=== PATIENT | female | born 1955 | race Caucasian/White ===

== ENCOUNTER 2017-12-18 11:13 | Inpatient (IN) | payer OTHER ==
[~2017-12-18] VITALS: Ht 167.6 cm; Wt 68.0 kg
[~2017-12-18 11:13] MED LIST: ABILIFY 2MG2 MG PO; ABILIFY 5MG5 MG PO; ATORVASTATIN CA20 MG PO; BUPROPION HCL100 M1 PO; BUPROPION SR100 M1 PO; LAMOTRIGINE150 MG PO; LEVOTHYROXINE0.1 M1 PO; LITHIUM CARBON600 MG PO; VITAMIN D1000 IU PO
--- NOTE | 2017-12-18 11:49 | ED PSYCHIATRIC COMPLAINT ---
See Addendum History of Present Illness General Chief Complaint: Psychiatric Related Complaint Stated Complaint: "I AM HERE TO GO TO [facility]" +SI Source: patient, family, old records Exam Limitations: no limitations Vital Signs & Intake/Output Vital Signs & Intake/Output Vital Signs Date Time Temp Pulse Resp B/P B/P Pulse O2 O2 Flow FiO2 Mean Ox Delivery Rate 12/18 1659 98.3 101 18 95/60 94 Room Air 12/18 1116 98.7 61 18 133/79 97 Room Air Allergies Coded Allergies: Penicillins (Intermediate, RASH 12/18/17) Reconcile Medications Aripiprazole (Abilify) 2 MG TABLET 1 TAB PO DAILY DEPRESSION/ANXIETY PRN Aripiprazole (Abilify) 5 MG TABLET 1 TAB PO DAILY DEPRESSION/ANXIETY Atorvastatin Calcium (Lipitor) 20 MG TABLET 20 MG PO 1700 HIGH CHOLESTEROL BUPROPION HCL (Bupropion HCl) 100 MG TABLET 1 TAB PO DAILY PSYCH (Reported) BUPROPION HCL (Bupropion HCl Sr) 100 MG TABLET.ER 1 TAB PO DAILY DEPRESSION Cholecalciferol (Vitamin D3) 1,000 UNIT TABLET 1,000 IU PO DAILY SUPPLEMENT Lamotrigine 150 MG TABLET 1 TAB PO DAILY DEPRESSION (Reported) Levothyroxine Sodium 0.1 MG TAB 1 TAB PO DAILY AC THYROID (Reported) Triage Note: PT STATES SHE IS BIPPOLR AND HAS BEEN OFF HER MEDS FOR 2 MONTHS. PT STATES SHE IS FEELING SUICIDAL DENIES HI. PT STATES SHE WAS SELF MEDICATING WITH ETOH, YESTERDAY BEING THE LAST TIME SHE TOOK A DRINK. Triage Nurses Notes Reviewed? yes Onset: Last week Duration: day(s):, constant, continues in ED Timing: recent history Severity: severe Associated Symptoms: anxiety, impaired concentration, insomnia, suicidal ideation LMP (ages 10-50): post menopausal : No Patient currently breastfeeds: No HPI: 2 months prior to admission patient moved [place] and has run out of her psychiatric medications without finding follow-up care. Over the last week she's had increasing depression sadness anxiety difficulty concentrating insomnia anorexia upset stomach nausea with thoughts of killing herself. She reports drinking alcohol to medicate herself. She denies fever chills vomiting diarrhea chest pain cough shortness of breath headache dysuria rash bleeding. (Reyna AVALOS,Elias) Past History Travel History Traveled to [place] past 21 day No Medical History Any Pertinent Medical History? see below for history Cardiovascular: hyperlipidemia Psychiatric: bipolar disease Endocrine: hypothyroidism History of MRSA: No History of VRE: No History of CDIFF: No Surgical History Surgical History: non-contributory Psychosocial History Who do you live with Spouse Services at Home Nursing What is your primary language Kittitian Tobacco Use: Never used ETOH Use: occasional use Illicit Drug Use: denies illicit drug use Family History Family History, If Any: MOTHER (Alzheimer's disease, heart disease). FATHER (depression, anxiety, melanoma). Relation not specified for: Anxiety disorder FH: Alzheimer's disease FH: depression FH: melanoma Hx Contributory? No (Elias Orellana MD) Review of Systems Review of Systems Constitutional: Reports: no symptoms. EENTM: Reports: no symptoms. Respiratory: Reports: no symptoms. Cardiovascular: Reports: no symptoms. GI: Reports: see HPI, nausea. Genitourinary: Reports: no symptoms. Musculoskeletal: Reports: no symptoms. Skin: Reports: no symptoms. Neurological/Psychological: Reports: see HPI, anxiety, depressed, emotional problems. Hematologic/Endocrine: Reports: no symptoms. Immunologic/Allergic: Reports: no symptoms. All Other Systems: Reviewed and Negative (Elias Orellana MD) Physical Exam Physical Exam General Appearance: well developed/nourished, mild distress Head: atraumatic, normal appearance Eyes: Bilateral: normal appearance, PERRL, EOMI. Ears, Nose, Throat: normal pharynx, normal ENT inspection, hearing grossly normal Neck: normal inspection, supple, full range of motion, no midline tenderness Respiratory: normal breath sounds, chest non-tender, no respiratory distress, quiet respiration, lungs clear Cardiovascular: regular rate/rhythm, normal peripheral pulses, norml femoral pulses equa Gastrointestinal: normal bowel sounds, soft, non-tender, no organomegaly Extremities: normal range of motion, no ligament instability Neurological/Psychiatric: no motor/sensory deficits, awake, agitated, alert, anxious, photo tech II-XII nml as tested, oriented x 3 Appearance/Memory/Insight: disheveled, impaired insight Behavoir/Eye Contact/Speech: cooperative, normal speech Thoughts/Hallucinations: no apparent hallucination Skin: intact, normal color, warm/dry SAD PERSONS SAD PERSONS Response Value Age <19 or >45 years? yes 1 Depression/Hopelessness? yes 2 Previous Attempts/Psych Care yes 1 Excessive Ethanol/Drug Use? yes 1 Rational Thinking Loss? yes 2 Single//? yes 1 Social Support? has support 0 Stated Future Intent? yes 2 Total 10 SAD PERSONS Done? yes (Reyna AVALOS,Elias) Progress Differential Diagnosis: drug intoxication, drug overdose, drug withdrawal, electrolyte abnormality, hypoglycemia Plan of Care: Orders Procedure Date/time Status Regular Diet 12/18 L Active Admit to inpatient psych 12/18 194 Active CIWA 12/18 194 Active Continuous Observation Monitor 12/18 1545 Active ED CRISIS PSYCH CONSULT 12/18 1503 Active Continuous Observation Monitor 12/18 1148 Active URINE DRUG SCREEN FOR ER ONLY 12/18 1147 Complete TSH REFLEX 12/18 1147 Complete ETHANOL 12/18 1147 Complete COMPREHENSIVE METABOLIC PANEL 12/18 1147 Complete CBC WITHOUT DIFFERENTIAL 12/18 1147 Complete Current Medications Sig/Phuc Start time Last Medication Dose Stop Time Status Admin Aripiprazole 5 MG ONCE ONE 12/19 1999 UNVr (Abilify) 12/18 2000 Lamotrigine 25 MG ONCE ONE 12/19 1999 UNVr (LaMICtal) 12/18 2000 Ondansetron HCl 4 MG Q6 PRN 12/18 1200 UNVr 12/18 (Zofran) 1234 Aripiprazole 5 MG DAILY 12/18 1146 UNVr 12/18 (Abilify) 1234 Laboratory Tests 12/18/17 1216: Urine Opiates Screen < 100, Methadone Screen < 40, Barbiturate Screen < 60, Ur Phencyclidine Scrn < 6.00, Amphetamines Screen < 100, U Benzodiazepines Scrn < 85, Urine Cocaine Screen < 50, Urine Cannabis Screen < 5.00 12/18/17 1207: Anion Gap 12, Estimated GFR > 60, BUN/Creatinine Ratio 21.7, Glucose 109 H, Calcium 9.5, Total Bilirubin 0.9, AST 96 H, ALT 116 H, Alkaline Phosphatase 60 , Total Protein 7.5, Albumin 4.3, Globulin 3.2, Albumin/Globulin Ratio 1.3, TSH &T3 &Free T4 Intrp 1.890, CBC w Diff NO MAN DIFF REQ, RBC 3.88 L, MCV 96.9, MCH 32.9 H, MCHC 34.0, RDW 13.8, MPV 7.4, Gran % 64.0, Lymphocytes % 26.2, Monocytes % 7.9, Eosinophils % 1.4, Basophils % 0.5, Absolute Granulocytes 3.1, Absolute Lymphocytes 1.3, Absolute Monocytes 0.4, Absolute Eosinophils 0.1, Absolute Basophils 0, Serum Alcohol < 10.0 Hand-Off Endorsed To: Thomas AVALOS,Aris Fishman Endorsed Time: 1899 Pending: consult (Elias Orellana MD) Departure Departure Disposition: STILL A PATIENT Condition: Stable Clinical Impression Primary Impression: Bipolar disorder current episode depressed Referrals: Marietta Rodriguez APRN (PCP/Family) Departure Forms: Customer Survey General Discharge Information (Elias Orellana MD) Psych Admission Note Psychiatric Admission: I have seen and evaluated ROBERTO CULP. I have also reviewed all the pertinent lab results and diagnostic results. ROBERTO CULP will be admitted to our inpatient Psychiatric unit for treatment and care. (Thomas AVALOS,Airs Fishman)
[2017-12-18 12:36] LABS: ABSOLUTE BASOPHIL COUNT 0 /CUMM (0.0-0.2); ABSOLUTE EOSINOPHIL COUNT 0.1 /CUMM (0.0-0.7); ABSOLUTE GRANULOCYTE CT 3.1 /CUMM (1.4-6.5); ABSOLUTE LYMPH COUNT 1.3 /CUMM (1.2-3.4); ABSOLUTE MONOCYTE COUNT 0.4 /CUMM (0.10-0.60); BASOPHIL % 0.5 % (0.0-2.0); EOSINOPHIL % 1.4 % (0-5); HEMATOCRIT 37.5 % (37-47); MEAN CORPUSCULAR HGB 32.9 PG (27.0-31.0); MEAN CORPUSCULAR VOLUME 96.9 FL (81.0-99.0); MEAN PLATELET VOLUME 7.4 FL (7.4-10.4); PLATELET COUNT 186 /CUMM (130-400); RBC DISTRIBUTION WIDTH 13.8 % (11.5-14.5); RED BLOOD CELL CT 3.88 /CUMM (4.20-5.40); WHITE BLOOD CELL COUNT 4.8 /CUMM (4.8-10.8)
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
[2017-12-18 21:58] VITALS: BP 116/70
[2017-12-18] MEDS ORDERED: LEVOTHYROXINE88 MCG PO (22:30)
[2017-12-18] MEDS ORDERED: ATORVASTATIN CA10 M1 PO (22:30)
[2017-12-18] MEDS ORDERED: MIRALAX17 G1 PO (22:31)
[2017-12-18 23:17] VITALS: BP 106/75
[2017-12-19] VITALS (8 sets, daily range): BP systolic 92–116; BP diastolic 57–60
--- NOTE | 2017-12-19 10:18 | CPS PROVIDER INIT ASMT PSYCH ---
Psychiatric Admission Consumer Affairs Director's Note Reviewed: Yes Patient Seen and Examined: Yes Identifying Information: 62yoF with bipolar disorder Chief Complaint: "I was off my meds" Reaction to Hospitalization: positive History of Present Illness Onset of Illness: years ago Circumstances Leading to Admission: medication noncompliance and alcohol use Problem(s) Justifying Need for Admission: worsening depression and SI Other HPI: Pt notes that she was a pt at [facility] and then moved to [place]. SHe missed two appointments and was discharged from their care. Since then off lamictal 300mg daily, wellbutrin XL 450mg daily and abilify 20 mg daily. Pt notes she felt oversedated and drugged on this regimen. She notes that since off meds started drinking up to 2 bottles wine a day. Noted worsening SI. Past Psychiatric History Past Diagnosis(es)- if any: Bipolar disorder Alcohol use disorder Past Precipitating Factors- if any: medication noncompliance and alcohol use - Include inpatient and outpatient treatment Treatment History: Prev at [facility], none recently History of Suicide Attempts or Gestures +passive SI at past Substance Abuse History: Tobacco: denied Alcohol: long hx of use, more recently none until two months ago, up to 2 bottles wine daily, has hx of complicated wd- SZ and DTs Illicits: denied Allergies: Coded Allergies: Penicillins (Intermediate, RASH 12/18/17) Home Med List: Pt not taking any meds - Include any medical condition(s) that may - impact the patient's recovery/remission Past Medical History: see H&P Past History Medical History Neurological: NONE EENT: NONE Cardiovascular: hyperlipidemia Respiratory: NONE Gastrointestinal: constipation Hepatic: NONE Renal: NONE Musculoskeletal: NONE Psychiatric: bipolar disease Endocrine: hypothyroidism Blood Disorders: NONE Cancer(s): NONE HAIRCUTTER/Reproductive: NONE History of MRSA: No History of VRE: No History of CDIFF: No Isolation History: Standard Surgical History Surgical History: non-contributory Psychiatric Family/Social Hx Family History Psychiatric Illness: sister with depression Substance Use: denied Suicides: denied Social History Living Situation: lives with sister Significant Relationships (family/friends): sister Education: 2 yrs college Vocation/Occupation: unemployed Legal: denied current Healthly Behaviors Screening Tobacco Screening Tobacco Use from ED Docu: Never used - If tobacco counseling indicated - the following topics are required. - #1 Recognizing dangerous situations. - #2 Coping Skills. - #3 Basic information about quitting. Status of Tobacco Cessation Counseling: Not Applicable Cessation Med Status Not Applicable Alcohol Screening - ETOH screen POS if BAL >=80 or Audit-C>= M4/F3 Audit-C Score from Diag Assess: 12 Blood Alcohol Level: Laboratory Tests 12/18 1207 Toxicology Serum Alcohol (<10 MG/DL) < 10.0 Alcohol Use Screening Results: Pos per Audit C &/or BAL - If ETOH counseling indicated - the following topics are required. - #1 Express concern about the patient's - drinking at unhealthy levels, include informing - of national norms for moderate drinking: - men <= 14 drinks/week, max 4 drinks/occasion - women <= 7 drinks/week, max 3 drinks/occasion - #2 Providing feedback, including linking alcohol to - negative physical effects (liver injury, hypertension) - negative emotional effects (relationship problems and - depression) - negative occupational consequences (reduced work - performance) - #3 Advising the patient to abstain from alcohol or - to drink below national norms for moderate drinking - (as listed above). Status of ETOH Use Counseling: #1, #2 AND #3 Completed. Metabolic Screening - Screen if on a Neuroleptic Medication - Metabolic screening should include: - Blood Pressure, BMI, Glucose or Hgb A1c, & a - Lipid profile from within the past 365 days. Metabolic Screening Laboratory Tests 12/19 12/18 12/18 0614 1216 1207 Chemistry Sodium (137 - 145 mmol/L) 140 Potassium (3.5 - 5.1 mmol/L) 4.5 Chloride (98 - 107 mmol/L) 101 Carbon Dioxide (22 - 30 mmol/L) 28 Anion Gap (5 - 16) 12 BUN (7 - 17 mg/dL) 13 Creatinine (0.5 - 1.0 mg/dL) 0.6 Estimated GFR (>60 ml/min) > 60 BUN/Creatinine Ratio (7 - 25 %) 21.7 Glucose (65 - 99 mg/dL) 109 H Hemoglobin A1c (4.2 - 5.8 %) Pending Calcium (8.4 - 10.2 mg/dL) 9.5 Total Bilirubin (0.2 - 1.3 mg/dL) 0.9 AST (14 - 36 U/L) 96 H ALT (9 - 52 U/L) 116 H Alkaline Phosphatase (<127 U/L) 60 Total Protein (6.3 - 8.2 g/dL) 7.5 Albumin (3.5 - 5.0 g/dL) 4.3 Globulin (1.9 - 4.2 gm/dL) 3.2 Albumin/Globulin Ratio (1.1 - 2.2 %) 1.3 Triglycerides (<150 mg/dL) 83 Cholesterol (<200 MG/DL) 189 LDL Cholesterol, Calc (65 - 129 mg/dL) 63 L HDL Cholesterol (40 - 60 mg/dL) 134 H Cholesterol/HDL Ratio (0.00 - 4.23 %) 1.4 Vitamin B12 (239 - 931 pg/mL) 326 TSH &T3 &Free T4 Intrp (0.270 - 4.20 uIU/mL) 1.890 Hematology CBC w Diff NO MAN DIFF REQ WBC (4.8 - 10.8 /CUMM) 4.8 RBC (4.20 - 5.40 /CUMM) 3.88 L Hgb (12.0 - 16.0 G/DL) 12.8 Hct (37 - 47 %) 37.5 MCV (81.0 - 99.0 FL) 96.9 MCH (27.0 - 31.0 PG) 32.9 H MCHC (33.0 - 37.0 G/DL) 34.0 RDW (11.5 - 14.5 %) 13.8 Plt Count (130 - 400 /CUMM) 186 MPV (7.4 - 10.4 FL) 7.4 Gran % (42.2 - 75.2 %) 64.0 Lymphocytes % (20.5 - 51.1 %) 26.2 Monocytes % (1.7 - 9.3 %) 7.9 Eosinophils % (0 - 5 %) 1.4 Basophils % (0.0 - 2.0 %) 0.5 Absolute Granulocytes (1.4 - 6.5 /CUMM) 3.1 Absolute Lymphocytes (1.2 - 3.4 /CUMM) 1.3 Absolute Monocytes (0.10 - 0.60 /CUMM) 0.4 Absolute Eosinophils (0.0 - 0.7 /CUMM) 0.1 Absolute Basophils (0.0 - 0.2 /CUMM) 0 Toxicology Urine Opiates Screen (>2000 NG/ML) < 100 Methadone Screen (>300 NG/ML) < 40 Barbiturate Screen (>200 NG/ML) < 60 Ur Phencyclidine Scrn (>25 NG/ML) < 6.00 Amphetamines Screen (>1000 NG/ML) < 100 U Benzodiazepines Scrn (>200 NG/ML) < 85 Urine Cocaine Screen (>300 NG/ML) < 50 Urine Cannabis Screen (>50 NG/ML) < 5.00 Serum Alcohol (<10 MG/DL) < 10.0 Exam and Plan Mental Status Examination Ambulation Status: freely w/o difficulty Appearance: younger than stated age Attitude towards examiner: cooperative Psychomotor activity: no agitation or retardation Behavior: cooperative Quality of speech: nl r/r/p/v Affect: slightly irritable, constricted, non-labile, jovanna Mood: "feeling better" Suicidal Ideation: REGISTERED DENTAL ASSISTANT, passive SI, denied current Homicidal Ideation: denied Hallucinations: denied Paranoid/Delusional Material: denied Difficulties with thought organization: none noted Insight: poor Judgment: poor Orientation: a/o x4 Cognition: grossly intact Memory Function: grossly intact Estimate of intellectual functioning: average Assets/Strengths Patient Identified Assets/Strengths: able to communicate Impression/Plan Impression and Plan: Pt with hx of bipolar disorder and AUD with worsening depression in the setting of medication noncompliance and worsening alcohol use. - Include all active medical diagnosis that require tx DSM 5 Diagnosis(es): Bipolar disorder Alcohol use disorder - Initial Tx Plan for Active Psych & Medical Conditions Treatment Plan: - Restart lithium at 25mg daily - Restart abilify at 5mg daily - Holding wellbutrin for now -CIWA and ativan for wd - Needs outpt tx - Factors that would help patient function - in a less restrictive setting. Factors: noncompliance with meds alcohol use
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
--- NOTE | 2017-12-19 18:56 | History & Physical ---
General Information and HPI History of Present Illness: Ms. Cardenas is a 62 y/o female with history of hypothyroidism, dyslipidemia, suicidal ideations presents to ER as she ran out of her medications, which she was getting at [facility]. Has been having increasing depression, anxiety, difficutly concentrations. Drinking alcohol more than usual too recently. Allergies/Medications Allergies: Coded Allergies: Penicillins (Intermediate, RASH 12/18/17) Home Med list Aripiprazole (Abilify) 5 MG TABLET 1 TAB PO DAILY DEPRESSION/ANXIETY Atorvastatin Calcium 10 MG TABLET 10 MG PO DAILY HIGH CHOLESTROL (Reported) Levothyroxine Sodium 88 MCG TABLET 88 MCG PO DAILY THYROID HEALTH (Reported) Polyethylene Glycol 3350 (Miralax) 17 GRAM POWD.PACK 17 GM PO DAILY CONSTIPATION (Reported) Past History Travel History Traveled to [facility] past 21 day No Medical History Neurological: NONE EENT: NONE Cardiovascular: hyperlipidemia Respiratory: NONE Gastrointestinal: constipation Hepatic: NONE Renal: NONE Musculoskeletal: NONE Psychiatric: bipolar disease Endocrine: hypothyroidism Blood Disorders: NONE Cancer(s): NONE CIRCULATION WORKER/Reproductive: NONE History of MRSA: No History of VRE: No History of CDIFF: No Isolation History: Standard Surgical History Surgical History: non-contributory Past Family/Social History Family History Relations & Conditions if any MOTHER (Alzheimer's disease, heart disease). FATHER (depression, anxiety, melanoma). 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 Respiratory: Reports: no symptoms. GI: Reports: no symptoms. Genitourinary: Reports: no symptoms. Musculoskeletal: Reports: no symptoms. Skin: Reports: no symptoms. Neurological/Psychological: Reports: see HPI. Exam & Diagnostic Data Last 24 Hrs of Vital Signs/I&O Vital Signs Date Time Temp Pulse Resp B/P B/P Pulse O2 O2 Flow FiO2 Mean Ox Delivery Rate 12/19 1631 61 92/59 / 1605 61 92/59 /02 1200 58 100/59 / 1159 58 100/59 / 0855 96.5 57 109/59 12/19 0534 97.3 55 116/60 06/01 2317 96.7 66 106/75 12/18 2158 97.2 54 18 116/70 12/182 98.4 57 20 104/56 97 Intake & Output 12/19 1600 12/19 0800 12/19 0000 Intake Total Output Total Balance Patient 150 lb Weight Physical Exam General Appearance Alert, Oriented X3, Cooperative Neck Supple Cardiovascular Regular Rate, Normal S1 Lungs Clear to Auscultation Abdomen Soft Neurological Normal Gait, Normal Speech, Sensation Intact, Cranial Nerves 3-12 NL Extremities No Clubbing, No Cyanosis, No Edema Last 24 Hrs of Labs/Dom: Laboratory Tests 12/19/17613: Hemoglobin A1c Pending, Triglycerides 83, Cholesterol 189, LDL Cholesterol, Calc 63 L, HDL Cholesterol 134 H, Cholesterol/HDL Ratio 1.4, Vitamin B12 326 Assessment/Plan Assessment: Ms. Cardenas is a 62 y/o female with history of hypothyroidism, dyslipidemia, suicidal ideations presents to ER as she ran out of her medications, which she was getting at [facility]. Has been having increasing depression, anxiety, difficutly concentrations. Drinking alcohol more than usual too recently. 1, Bipolar disorder with suicidal ideations - management per Psychiatry 2. Alcohol abuse 3. Hypothyroidism - recent lab work - normal TSH 4. Dyslipidemia - continue with lipitor As Ranked By This Provider Problem List: 1. Hypothyroidism 2. Hyperlipidemia 3. Bipolar disorder 4. Medication refill Core Measures/Misc (04/05) Acute Coronary Syndrome ACS Diagnosis: No Congestive Heart Failure Congestive Heart Failure Diagnosis No Cerebrovascular Accident CVA/TIA Diagnosis: No VTE (View Protocol) VTE Risk Factors Other No Mechanical VTE Prophylaxis d/t LowRisk-No Interven Req'd No VTE Pharm Prophylaxis d/t LowRisk-No Interven Req'd Sepsis (View protocol) Sepsis Present: No If YES complete Sepsis Event Note If YES complete Sepsis Event Note
[2017-12-20] VITALS (7 sets, daily range): BP systolic 102–115; BP diastolic 57–75
--- NOTE | 2017-12-20 10:45 | CP SOUTH PROGRESS NOTE PSYCH ---
Psych (Inpt) Progress Note Progress Note Include the following elements, when applicable: Involvement in the active treatment of the patient with behavioral observations of the patient and the patient's response to the treatment. Review of the ongoing treatment process in the context of the treatment plan. Indication of how multi-disciplinary staff members are carrying out the treatment plan. Plans for future interventions and recommendations for revision of the treatment plan. Liaison with other physicians/providers. Progress Note: Pt notes feeling better today. Slept well. Visited by sister who is very supportive. Very future oriented. Denies SI or HI. Current Medications Sig/Phuc Start time Last Medication Dose Route Stop Time Status Admin Aripiprazole 5 MG DAILY 12/18 1146 AC 12/20 PO 0830 Atorvastatin Calcium 10 MG DAILY 12/19 0900 AC 12/20 PO 0830 Cyanocobalamin 1,000 MCG DAILY 12/19 1019 AC 12/20 PO 0830 Folic Acid 1 MG DAILY 12/19 0900 AC 12/20 PO 12/21 0901 0830 Gabapentin 300 MG Q6P PRN 12/18 2130 AC PO Hydroxyzine HCl 25 MG Q6P PRN 12/18 2130 AC PO Lamotrigine 25 MG DAILY 12/19 0900 AC 12/20 PO 0830 Levothyroxine Sodium 0.088 MG DAILY AC 12/19 0700 AC 12/20 PO 0620 Lorazepam 0.5 MG ONCE 12/23 0000 AC PO 12/23 0001 Lorazepam 0.5 MG Q6H 12/22 0000 AC PO 12/22 1801 Lorazepam 0.5 MG ONCE ONE 12/21 1800 AC PO 12/21 1801 Lorazepam 1 MG Q6H 12/21 0000 AC PO 12/21 1201 Lorazepam 1.5 MG Q12H 12/20 0600 AC 12/20 PO 12/20 1801 0620 Lorazepam 1 MG Q12H 12/20 0000 AC 12/19 PO 12/20 1201 2342 Lorazepam 1.5 MG Q6 12/19 0600 DC 12/19 PO 12/19 1801 1810 Lorazepam 2 MG Q2P PRN 12/18 2130 AC PO Lorazepam 1 MG Q2P PRN 12/18 2130 AC PO Ondansetron HCl 4 MG Q6 PRN 12/18 1200 AC 12/18 PO 1234 Polyethylene Glycol 17 GM DAILY 12/19 0900 AC 12/20 PO 0830 Thiamine HCl 100 MG DAILY 12/19 09 AC 12/20 PO 12/21 0901 0830 Trazodone HCl 50 MG AT BEDTIME NEED.. 12/18 2129 AC PO Laboratory Tests 12/19 12/18 12/18 0614 1216 1207 Chemistry Sodium (137 - 145 mmol/L) 140 Potassium (3.5 - 5.1 mmol/L) 4.5 Chloride (98 - 107 mmol/L) 101 Carbon Dioxide (22 - 30 mmol/L) 28 Anion Gap (5 - 16) 12 BUN (7 - 17 mg/dL) 13 Creatinine (0.5 - 1.0 mg/dL) 0.6 Estimated GFR (>60 ml/min) > 60 BUN/Creatinine Ratio (7 - 25 %) 21.7 Glucose (65 - 99 mg/dL) 109 H Hemoglobin A1c (4.2 - 5.8 %) Pending Calcium (8.4 - 10.2 mg/dL) 9.5 Total Bilirubin (0.2 - 1.3 mg/dL) 0.9 AST (14 - 36 U/L) 96 H ALT (9 - 52 U/L) 116 H Alkaline Phosphatase (<127 U/L) 60 Total Protein (6.3 - 8.2 g/dL) 7.5 Albumin (3.5 - 5.0 g/dL) 4.3 Globulin (1.9 - 4.2 gm/dL) 3.2 Albumin/Globulin Ratio (1.1 - 2.2 %) 1.3 Triglycerides (<150 mg/dL) 83 Cholesterol (<200 MG/DL) 189 LDL Cholesterol, Calc (65 - 129 mg/dL) 63 L HDL Cholesterol (40 - 60 mg/dL) 134 H Cholesterol/HDL Ratio (0.00 - 4.23 %) 1.4 Vitamin B12 (239 - 931 pg/mL) 326 TSH &T3 &Free T4 Intrp (0.270 - 4.20 uIU/mL) 1.890 Hematology CBC w Diff NO MAN DIFF REQ WBC (4.8 - 10.8 /CUMM) 4.8 RBC (4.20 - 5.40 /CUMM) 3.88 L Hgb (12.0 - 16.0 G/DL) 12.8 Hct (37 - 47 %) 37.5 MCV (81.0 - 99.0 FL) 96.9 MCH (27.0 - 31.0 PG) 32.9 H MCHC (33.0 - 37.0 G/DL) 34.0 RDW (11.5 - 14.5 %) 13.8 Plt Count (130 - 400 /CUMM) 186 MPV (7.4 - 10.4 FL) 7.4 Gran % (42.2 - 75.2 %) 64.0 Lymphocytes % (20.5 - 51.1 %) 26.2 Monocytes % (1.7 - 9.3 %) 7.9 Eosinophils % (0 - 5 %) 1.4 Basophils % (0.0 - 2.0 %) 0.5 Absolute Granulocytes (1.4 - 6.5 /CUMM) 3.1 Absolute Lymphocytes (1.2 - 3.4 /CUMM) 1.3 Absolute Monocytes (0.10 - 0.60 /CUMM) 0.4 Absolute Eosinophils (0.0 - 0.7 /CUMM) 0.1 Absolute Basophils (0.0 - 0.2 /CUMM) 0 Toxicology Urine Opiates Screen (>2000 NG/ML) < 100 Methadone Screen (>300 NG/ML) < 40 Barbiturate Screen (>200 NG/ML) < 60 Ur Phencyclidine Scrn (>25 NG/ML) < 6.00 Amphetamines Screen (>1000 NG/ML) < 100 U Benzodiazepines Scrn (>200 NG/ML) < 85 Urine Cocaine Screen (>300 NG/ML) < 50 Urine Cannabis Screen (>50 NG/ML) < 5.00 Serum Alcohol (<10 MG/DL) < 10.0 Vital Signs Date Time Temp Pulse Resp B/P B/P Pulse O2 O2 Flow FiO2 Mean Ox Delivery Rate 12/20 758 97.3 69 112/62 12/20 0759 97.3 69 112/62 12/19 1957 97.2 60 94/57 12/19 1954 97.2 60 94/57 / 1631 61 92/59 /02 1605 61 92/59 06/02 1200 58 100/59 /02 1159 58 100/59 MSE General appearance: good hygiene and grooming; Attitude: cooperative; Eye contact: appropriate; Movement: no psychomotor agitation or slowing; Speech: nl fluency, nl rate/rhythm, nl volume, nl prosody; Mood: "pretty good" Affect: slihgtly irritable, flat, appropriate, constricted, non-labile, congruent; Thought process: linear and goal-directed; Thought content: denied SI or HI, no paranoid ideation; Perception: denied hallucinations- auditory, visual, does not appear to be responding to internal stimuli; I/J: limited A/P: Pt with hx of bipolar disorder and AUD with worsening depression in the setting of medication noncompliance and worsening alcohol use. -Continue current medication regimen -Encourage integration into the milieu
[2017-12-21] VITALS (9 sets, daily range): BP systolic 99–115; BP diastolic 61–71
--- NOTE | 2017-12-21 14:24 | CP SOUTH PROGRESS NOTE PSYCH ---
Psych (Inpt) Progress Note Progress Note Include the following elements, when applicable: Involvement in the active treatment of the patient with behavioral observations of the patient and the patient's response to the treatment. Review of the ongoing treatment process in the context of the treatment plan. Indication of how multi-disciplinary staff members are carrying out the treatment plan. Plans for future interventions and recommendations for revision of the treatment plan. Liaison with other physicians/providers. Progress Note: Dr. Borrero's notes reviewed. Medication list reviewed. Case and treatment plan discussed in team meeting. Staff reports that the patient is denying SI. CIWAs are fine. On an Ativan taper. Described as withdrawn, isolative, depressed and anxious at times. Patient seen at 10:47 a.m. Reports she moved to [place] abruptly to live with a sister. Missed 2 [facility] appointments and was cut off. Has been off medications (WB XL 450 mg daily, Lamictal 100 mg qAM and 200 mg qPM and Abilify 20 mg daily) x 2 months. Started to drink ~1 month ago. States she knew then she was in trouble. Was drinking ~2 bottles of wine/day. SI started a few weeks ago. No hx of self-harm or attempts. Casually dressed WF. Affect calm/blunted. Feels depressed. Sad 04/28. Anxiety 04/28. Feels hopeless, helpless and worthless. Feels guilty for not being in a better place. Reports SI, afraid of sharp objects. Gives a safety promise for here. Denies HI, AH, VH, PI and magical corona. Ox3 except 12/20/17. Sleep: better on Ativan. Appetite: not good x ~1 month. Lost ~15#/1 month. Energy low x ~2 months. [place] well on prior medications but also felt overmedicated. States she will need OPTx in [place]. , lives with sister. Has 4 adult sons. Patient not working. Denied for disabilty. IMPRESSION: Slow progress. Continue present treatment plan. Alcohol detox continues. Consider increasing Abilify dose in a few days. Patient is a poor candidate for Wellbutrin if she drinks while on it, due to seizure risk. Past hx lithium toxicity. Does not want Depakote because of weight gain potential. Was on Lexapro in the past.
--- NOTE | 2017-12-21 15:30 | SOCIAL WORKER PROG NOTE PSYCH ---
Social Work Progress Note Progress Note Lukas was in her room resting. She got up when prompted to meet. She talked about how she moved in with her Sister Annelise in [facility] and then ended up running out of medication, because she couldn't get them from [facility] after missing a couple of appts. She began self medicating with alcohol and has been steadily drinking more and more over the past month. She had been drinking 2 bottles of wine before admission. She said she was so distressed last week that she was not eating or sleeping. She said she was pacing around extremely anxious. Began having suicidal thoughts due to how hopeless she felt. She knew she needed to come inpatient for help and that's why she came here. She reports that her Sister Annelise is supportive and that her other Sister Emperatriz is a support. She signed a release for both. She reports depression runs in her family and that all of her siblings take medications. She has been unemployed since 2006, when she was first diagnosed with Bipolar D/O. She doesn't know if she agrees with her diagnosis. She said she has never had a manic episode. She had applied for disability, but was denied. She is considering applying again. Today she reports feeling very anxious rating her anxiety at a 10 (0-10, 10 being most severe) and depression at 10. She denies SI, but stated "it's always in the back of my mind." She reports feeling safe here and doesn't feel alone. We talked about an aftercare plan of possible IOP at [place]. She would like more information about it. Attempted to call her sister Annelise Simons [phone], her voicemail has not been set up.
--- NOTE | 2017-12-21 16:16 | SOCIAL WORKER PROG NOTE PSYCH ---
Social Work Progress Note Progress Note Completed [facility] online concurrent review today - requested continued stay. CHECK [facility] WEB for next review date, please.
[2017-12-22] VITALS (9 sets, daily range): BP systolic 102–111; BP diastolic 53–69
--- NOTE | 2017-12-22 14:25 | CP SOUTH PROGRESS NOTE PSYCH ---
Psych (Inpt) Progress Note Progress Note Include the following elements, when applicable: Involvement in the active treatment of the patient with behavioral observations of the patient and the patient's response to the treatment. Review of the ongoing treatment process in the context of the treatment plan. Indication of how multi-disciplinary staff members are carrying out the treatment plan. Plans for future interventions and recommendations for revision of the treatment plan. Liaison with other physicians/providers. Progress Note: Case and treatment plan discussed in team meeting. Staff reports that the patient is denying suicidal ideation. CIWA scores are unremarkable. Attending groups. Also spends time in bed. Had visits from 2 sisters. A little isolative. Patient seen at 10:18 AM with medical student. Patient was in group prior to meeting with us in office. Feels okay. Reports she feels better, okay, a little apprehensive. Affect is calm and blunted. Rates sad mood like a 7/10 and anxiety 5/10. Feels less hopeless, helpless and worthless. Reports guilt is not so bad as it had been when she just came in. Denies active and passive suicidal ideation. Denies homicidal ideation. Denies auditory and visual hallucinations and paranoid ideation. Reports she is sleeping better with Ativan and states that she slept well. Appetite is fair. Reports she does not have much energy. Tolerating medications well. Denies withdrawal symptoms. IMPRESSION: Slow progress. Continue present treatment plan. We are trying to arrange a family meeting. We will likely refer patient to [facility] at [place]. Anticipate likely discharge on .
--- NOTE | 2017-12-22 16:10 | SOCIAL WORKER PROG NOTE PSYCH ---
Social Work Progress Note Progress Note SW met with the patient for her daily assessment. The patient presents with depressed mood and flat affect. She rates her depression and anxiety both an 8 out of 10, 10 being the most severe. She reports that she told the doctor she was doing better then she is, stating, " I said what I thought I needed to, to get out (Dr. Acosta made aware). She states that she is not feeling well and continues to report feeling helpless and hopeless. She denies any current suicidal or homicidal ideations. She reports that she has been sleeping more, but that it is good, as she did not sleep for many days prior to being admitted. She plans to return to live with her sister at discharge and would like to go to [place] for medication management and individual therapy.
[2017-12-23] VITALS (8 sets, daily range): BP systolic 100–111; BP diastolic 58–67
--- NOTE | 2017-12-23 10:51 | SOCIAL WORKER PROG NOTE PSYCH ---
Social Work Progress Note Progress Note Spoke with Lukas about her current symptoms and discharge for tomorrow. Lukas reported not feeling like herself over the last several days. She has been isolative and tired. Discussed how this was likely due to the Ativan taper she has been on. Initially Lukas said she didn't feel ready for d/c tomorrow, but the more we talked about it the more it seemed that she is just nervous about going home to the same environment. She was nervous that her symptoms would come back, but after thinking about it she knew that wasn't really accurate. She said she is comfortable with the idea of discharge. I told her that I tried calling her sister Annelise again this morning, but couldn't get through. Lukas and I called together. Looks like I may have been given the wrong phone number initially. Her number is [phone]. Talked with Annelise about coming in for a meeting. We will meet tomorrow at 10:15am. She was informed that Lukas will most likely leave after the meeting with her. She seemed okay with that plan. I explained that I was looking at setting up aftercare and discussing [place] IOP as an option. Both Lukas and her Sister didn't feel that is what she needs right now. Annelise is pursuing a doctor for Lukas, but she is currently out of the [place]. Both feel she would benefit more from individual work at this time. Lukas is okay with [place] outpatient being set up, until she is connected with this other doctor. Lukas reports significantly less anxiety rating her anxiety today at a 3 (0-10, 10 being severe). She denies current SI and stated "those thoughts are a memory." Encouraged her to spend time going to groups today and being more active now that she is feeling less sedated. Called [place] adult outpatient services. Left a voicemail 2x's.
--- NOTE | 2017-12-23 10:57 | CP SOUTH PROGRESS NOTE PSYCH ---
Psych (Inpt) Progress Note Progress Note Include the following elements, when applicable: Involvement in the active treatment of the patient with behavioral observations of the patient and the patient's response to the treatment. Review of the ongoing treatment process in the context of the treatment plan. Indication of how multi-disciplinary staff members are carrying out the treatment plan. Plans for future interventions and recommendations for revision of the treatment plan. Liaison with other physicians/providers. Progress Note: Case and treatment plan discussed in team meeting. Staff reports that the patient is denying suicidal ideation. Isolative. Was withdrawn in bed all evening. CIWA scores are unremarkable. Patient seen at 10:29 AM, initially with manager social services, Jenna, in the conference room. Patient reports she is doing okay. She thinks she is better without the Ativan. States she was sleepy and not engage while on Ativan. She anticipates family meeting with sister tomorrow at 10:15 AM then discharge to home. Does not want to go to an [facility]. Wants individual therapy and medication management. Hopes to see Dr. Rodrigues in [place]. Otherwise will go to [place] for outpatient treatment. Affect is calm and blunted. Reports mood is better. Rates sad mood 0/10 and anxiety 2/10. Denies feeling hopeless, helpless, worthless or guilty. Denies active and passive suicidal ideation. Denies homicidal ideation. Denies auditory and visual hallucinations and paranoid ideation. Denies withdrawal symptoms. Reports she is sleeping too much. Reports appetite is okay and energy is improving. Tolerating medications without complaint. IMPRESSION: Condition improving. Anticipate discharge tomorrow to home with referral to [place] for outpatient treatment.
[2017-12-24 07:41] VITALS: BP 105/70
[2017-12-24 07:42] VITALS: BP 105/70
--- NOTE | 2017-12-24 08:17 | SOCIAL WORKER PROG NOTE PSYCH ---
Social Work Progress Note Progress Note Called [facility] again this morning. I was transferred to a voicemail of a Dr. Susan Medel. Left a message regarding f/u care. Spoke with Lukas about not being able to connect with [facility]. Asked if she would be interested in having a [place] [facility] appt. in case she can't see anyone at [facility] soon? She seemed ambivalent due to transportation. She said she would like to discuss it further with her Sister in the family meeting this morning. Family meeting held this morning with Lukas's sisters Emperatriz and Annelise.n Dr. Acosta was in attendance for this meeting as well. Both sisters think she is doing much better. Lukas is feeling much less anxious and sad. She rates her sad feelings today at a 0 (0-10, 10 being severe) and anxiety a 2. She is not feeling suicidal. Denies feeling helpless, hopeless, worthless, guilty, or wanting to be . Both sisters asked questions to Dr. Acosta about her medications and what they are used for. Discussed aftercare and the problems that I have had connecting to [facility]. Talked about scheduling an OPS appt. here at [place]. They were in agreement with that plan and said they would help her get here. They will also be pursuing a private psychiatrist and therapist for her. Emphasized the importance of her not running out of meds, so if they don't end up needing the OPS appt. they were encouraged to cancel. Talked with Lukas about the importance of structuring her time and having a goal each day. She talked about getting to the library and taking walks. Needs to start scheduling with the transportation service in [facility]. [facility] was contacted and appt. scheduled with Dr. Whitehead on 12/31 at 12:45pm. Lukas and her sister's were given this information.
[2017-12-24] MEDS ORDERED: LAMICTAL25 M1 PO (09:55)
[2017-12-24] MEDS ORDERED: VITAMIN B-121000 MC3 PO (09:55)
[2017-12-24] MEDS ORDERED: ONE DAILY MULT1 EAC2 PO (09:55)
[2017-12-24] MEDS ORDERED: ABILIFY5 M1 PO (09:55)
[2017-12-24] MEDS ORDERED: GABAPENTIN300 M2 PO (09:58)
--- NOTE | 2017-12-24 10:15 | Patient Discharge Instructions ---
Psych Discharge Inst General Discharge Information Reason for Admission: Worsening depression and SI. Was drinking and off medications. Psy Discharge Primary Diag+ Bipolar d/o, depressed Psy Discharge Secondary Diag+ Alcohol use disorder Hypothyroidism Hyperlipidemia Summary Tests/Major Procedures Lab ALT 116 U/L H 12/18/17 1207 AST 96 U/L H 12/18/17 1207 BUN 13 mg/dL 12/18/17 1207 Calcium 9.5 mg/dL 12/18/17 1207 Carbon Dioxide 28 mmol/L 12/18/17 1207 Chloride 101 mmol/L 12/18/17 1207 Cholesterol 189 MG/DL 12/19/17 0614 Cholesterol/HDL Ratio 1.4 % 12/19/17 0614 Creatinine 0.6 mg/dL 12/18/17 1207 Estimated GFR > 60 ml/min 12/18/17 1207 Glucose 109 mg/dL H 12/18/17 1207 HDL Cholesterol 134 mg/dL H 12/19/17 0614 Hemoglobin A1c 5.3 % 12/19/17 0614 LDL Cholesterol, Calc 63 mg/dL L 12/19/17 0614 Potassium 4.5 mmol/L 12/18/17 1207 Sodium 140 mmol/L 12/18/17 1207 TSH &T3 &Free T4 Intrp 1.890 uIU/mL 12/18/17 1207 Total Bilirubin 0.9 mg/dL 12/18/17 1207 Triglycerides 83 mg/dL 12/19/17 0614 Vitamin B12 326 pg/mL 12/19/17 0614 Hct 37.5 % 12/18/17 1207 Hgb 12.8 G/DL 12/18/17 1207 MCH 32.9 PG H 12/18/17 1207 Plt Count 186 /CUMM 12/18/17 1207 RBC 3.88 /CUMM L 12/18/17 1207 WBC 4.8 /CUMM 12/18/17 1207 Serum Alcohol < 10.0 MG/DL 12/18/17 1207 EKG 12/19/17 showed sinus rhythm @ 54, no significant change since previous tracing, normal EKG, QT 452, QTc 429. Studies Pending at DC: None. Patient Instructions Contact Information Your Psychiatrist on [facility] was Aris Acosta MD * If you are experiencing an emergency related to this hospitalization, please call [phone] to contact the treating psychiatrist or the psychiatrist-on- call. * To Request a copy of your medical records, please contact the Medical Records Department at [phone]. * To request results of studies pending at the time of discharge, please call [phone]. * Continue your Medications until directed to stop by your Healthcare provider. General Medication Information Please continue to take your new medications and your continued home medications , unless otherwise indicated on your discharge medication list, or unless directed by your MD or [facility] to stop them. Special Instructions Diet Regular Activity Normal Other Inst/Recommendations Stay away from alcohol. Please see PCP about elevated liver fn tests. - Tobacco Use Treatment Offered Post DC Medications Offered: Not Applicable Post DC Tobacco Treatment Plan: Not Applicable - EtOH/Drug Use D/O Treatment Offered Post DC Medications Offered: Med Not Indicated for D/O Post DC EtOH/SubAbuse [place] Plan: Other SubAbuse/Dual Pgm ([place]) Program Appt Date: 12/25/17 Program Appt Time: 1000 (Exact time and date TBA.) Metabolic Screening ([x]) Not Applicable, patient not on a neuroleptic. OR () Patient on a neuroleptic(s) . Enter below results for Hemoglobin A1C, and lipid panel if obtained during the last 365 days. BMI: 24.200 Blood Pressure: 105/70 Laboratory Results From [facility] (If applicable): Advance Directives Does the Patient have Medical Advance Directives No/Refused further info Does Pt have Psychiatric Advance Directives? No/Refused further info Does Patient have a Designated Surrogate Decision Maker: No Information About Psychiatric Advance Directives Provided? Refused Discharge Plan Post Hospital Treatment Plan: Returning to live with sister.
--- NOTE | 2017-12-24 13:38 | SOCIAL WORKER PROG NOTE PSYCH ---
Social Work Progress Note Faxed Referral(s) Referred To: OPS Transition of Care Documents sent: Health Summary Faxed to: [facility] Fax #: [phone] Faxed by: Jenna Abraham Date faxed: 12/24/17 Time Faxed: [phone]
--- NOTE | 2017-12-24 13:51 | CP SOUTH PROGRESS NOTE PSYCH ---
Psych (Inpt) Progress Note Progress Note Include the following elements, when applicable: Involvement in the active treatment of the patient with behavioral observations of the patient and the patient's response to the treatment. Review of the ongoing treatment process in the context of the treatment plan. Indication of how multi-disciplinary staff members are carrying out the treatment plan. Plans for future interventions and recommendations for revision of the treatment plan. Liaison with other physicians/providers. Progress Note: Case and treatment plan discussed in team meeting. Staff reports that the patient is denying suicidal ideation. Stated she had no bowel movement in 5 days. Was in bed all evening. Minimal interactions. Family meeting was scheduled with sisters for 10:15 AM. Patient seen at 10:20 AM with 2 sisters, social human services assistants, Jenna and social human services assistants internal review and audit compliance. Affect is calm and blunted. Feels okay. Has no complaints. Mood is okay. Rates sad mood 0/10 and anxiety 2/10. Denies feeling hopeless, helpless, worthless or guilty. Denies active and passive suicidal ideation. Denies homicidal ideation. Denies auditory and visual hallucinations and paranoid ideation. Reports she did not sleep last night, anticipating going home. Reports appetite is good and energy has improved. Tolerating medications well. Feels ready and safe for discharge. IMPRESSION: Condition improved. Okay for discharge today to return to live with sister. Patient is being referred to [facility].
--- NOTE | 2017-12-24 13:58 | DISCHARGE SUMMARY REPORT-PSYCH ---
Visit Information Visit Dates/Diagnosis' Admission Date: 12/18/17 Discharge Date: 12/24/17 Reason for Admission: Worsening depression and SI. Was drinking and off medications. Psy Discharge Primary Diag: Bipolar d/o, depressed Psy Discharge Secondary Diag: Alcohol use disorder Hypothyroidism Hyperlipidemia Hospital Course Significant Lab Findings: Lab ALT 116 U/L H 12/18/17 1207 AST 96 U/L H 12/18/17 1207 BUN 13 mg/dL 12/18/17 1207 Calcium 9.5 mg/dL 12/18/17 1207 Carbon Dioxide 28 mmol/L 12/18/17 1207 Chloride 101 mmol/L 12/18/17 1207 Cholesterol 189 MG/DL 12/19/17 0614 Cholesterol/HDL Ratio 1.4 % 12/19/17 0614 Creatinine 0.6 mg/dL 12/18/17 1207 Estimated GFR > 60 ml/min 12/18/17 1207 Glucose 109 mg/dL H 12/18/17 1207 HDL Cholesterol 134 mg/dL H 12/19/17 0614 Hemoglobin A1c 5.3 % 12/19/17 0614 LDL Cholesterol, Calc 63 mg/dL L 12/19/17 0614 Potassium 4.5 mmol/L 12/18/17 1207 Sodium 140 mmol/L 12/18/17 1207 TSH &T3 &Free T4 Intrp 1.890 uIU/mL 12/18/17 1207 Total Bilirubin 0.9 mg/dL 12/18/17 1207 Triglycerides 83 mg/dL 12/19/17 0614 Vitamin B12 326 pg/mL 12/19/17 0614 Hct 37.5 % 12/18/17 1207 Hgb 12.8 G/DL 12/18/17 1207 MCH 32.9 PG H 12/18/17 1207 Plt Count 186 /CUMM 12/18/17 1207 RBC 3.88 /CUMM L 12/18/17 1207 WBC 4.8 /CUMM 12/18/17 1207 Serum Alcohol < 10.0 MG/DL 12/18/17 1207 EKG 12/19/17 showed sinus rhythm @ 54, no significant change since previous tracing, normal EKG, QT 452, QTc 429. Course Complications: None. Consultations: The patient was seen by Dr. Sanders for admission H&P. Per Dr. Sanders's note of 12/19/17: "Assessment: Ms. Cardenas is a 62 y/o female with history of hypothyroidism, dyslipidemia, suicidal ideations presents to ER as she ran out of her medications, which she was getting at [facility]. Has been having increasing depression, anxiety, difficutly concentrations. Drinking alcohol more than usual too recently. 1, Bipolar disorder with suicidal ideations - management per Psychiatry 2. Alcohol abuse 3. Hypothyroidism - recent lab work - normal TSH 4. Dyslipidemia - continue with lipitor" Allergies: Coded Allergies: Penicillins (Intermediate, RASH 12/18/17) Hospital Course/TX Response: The patient was monitored on the unit for safety, alcohol withdrawal and mood disorder. She participated in multi-modal treatments on the unit. Detox was uneventful. Lamictal was restarted on 12/18/17 at 25 mg daily and dose should be tapered up as per guidelines. Abilify was restarted at 5 mg daily and should be tapered up as clinically indicated. Wellbutrin was not restarted due to risks of jazmin and seizure if she were to drink while on it. Mood and affect have improved. SI has remitted. Progress note from date of discharge, 12/24/17: "Case and treatment plan discussed in team meeting. Staff reports that the patient is denying suicidal ideation. Stated she had no bowel movement in 5 days. Was in bed all evening. Minimal interactions. Family meeting was scheduled with sisters for 10:15 AM. Patient seen at 10:20 AM with 2 sisters, child protective services social worker, Jenna and child protective services social worker news department intern. Affect is calm and blunted. Feels okay. Has no complaints. Mood is okay. Rates sad mood 0/10 and anxiety 2/10. Denies feeling hopeless, helpless, worthless or guilty. Denies active and passive suicidal ideation. Denies homicidal ideation. Denies auditory and visual hallucinations and paranoid ideation. Reports she did not sleep last night, anticipating going home. Reports appetite is good and energy has improved. Tolerating medications well. Feels ready and safe for discharge. IMPRESSION: Condition improved. Okay for discharge today to return to live with sister. Patient is being referred to [facility]." Discharge HBIPS - Tobacco Use Treatment Offered Post DC Medications Offered: Not Applicable Post DC Tobacco Treatment Plan: Not Applicable - EtOH/Drug Use D/O Treatment Offered Post DC Medications Offered: Med Not Indicated for D/O Post DC EtOH/SubAbuse TX Plan: [facility] SubAbuse/Dual IOP ([facility]) Program Appt Date: 12/31/17 Program Appt Time: 1245 Metabolic Screening - Screen if on a Neuroleptic Medication - Metabolic screening should include: - Blood Pressure, BMI, Glucose or Hgb A1c, & a - Lipid profile from within the past 365 days. Metabolic Screening () Not Applicable, patient not on a neuroleptic. OR () Patient on a neuroleptic(s) . Enter below results for Hemoglobin A1C, and lipid panel if obtained during the last 365 days. BMI: 24.200 Blood Pressure: 105/70 Laboratory Results From [facility] (If applicable): [x] Lab Cholesterol 189 MG/DL 12/19/17613 Cholesterol/HDL Ratio 1.4 % 12/19/17613 HDL Cholesterol 134 mg/dL H 12/19/17613 Hemoglobin A1c 5.3 % 12/19/17613 LDL Cholesterol, Calc 63 mg/dL L 12/19/17613 Triglycerides 83 mg/dL 12/19/17613 Discharge Instructions General Discharge Information Multiple Neuroleptics: ([x]) Not Applicable OR Document below three failed attempts at monotherapy, or a plan to taper to monotherapy, or augmentation of Clozapine. () Discharge Diet Regular Discharge Activity Normal DC Disposition: Returning to live with sister. Referrals Ordered Referrals Provider Referral For Groups: Outpatient Psychiatry [facility] Outpatient Psychiatry Services Intake for mental health and substance use 12/31/17 12:45pm Dr. Whitehead [address] [place] [id number] Prescriptions Stop taking the following medications: Levothyroxine Sodium (Levothyroxine Sodium) 0.1 MG TAB ORAL DAILY BEFORE BREAKFAST Qty = 30 BUPROPION HCL (Bupropion HCl) 100 MG TABLET ORAL DAILY Qty = 30 Lamotrigine (Lamotrigine) 150 MG TABLET ORAL DAILY Qty = 60 Atorvastatin Calcium (Lipitor) 20 MG TABLET ORAL 5 PM Days = 30 Cholecalciferol (Vitamin D3) 1,000 UNIT TABLET ORAL DAILY Days = 30 Aripiprazole (Abilify) 2 MG TABLET ORAL DAILY Qty = 20 BUPROPION HCL (Bupropion HCl Sr) 100 MG TABLET.ER ORAL DAILY Qty = 25 Continue taking these medications: Levothyroxine Sodium (Levothyroxine Sodium) 88 MCG TABLET 88 Microgram ORAL DAILY Comments: Last Taken:12/24/17 Time:646 Atorvastatin Calcium (Atorvastatin Calcium) 10 MG TABLET 10 Milligram ORAL DAILY Comments: Last Taken:12/24/17 Time:47 Polyethylene Glycol 3350 (Miralax) 17 GRAM POWD.PACK 17 Gram ORAL DAILY Comments: Last Taken:12/24/17 Time:746 Start taking the following new medications: Lamotrigine (Lamictal) 25 MG TABLET 1 Tablet ORAL DAILY Qty = 14 No Refills Comments: Last Taken:12/24/17 Time:746 Cyanocobalamin (Vitamin B-12) 1,000 MCG TABLET 1 Tablet ORAL DAILY Qty = 14 No Refills Comments: Last Taken:12/24/17 Time:746 Multivitamin (One Daily Multivitamin) 1 EACH TABLET 1 Tablet ORAL DAILY Qty = 14 No Refills Comments: Last Taken:12/24/17 Time:746 Gabapentin (Gabapentin) 300 MG CAPSULE 1 Capsule ORAL EVERY SIX HOURS NEEDED as needed for ANXIETY/AGITATION/ INSOMNIA Qty = 42 No Refills Comments: Last Taken:12/24/17 Time:0748 The following medications have been changed: Old: Aripiprazole (Abilify) 5 MG TABLET 1 Tablet ORAL DAILY Qty = 25 New: Aripiprazole (Abilify) 5 MG TABLET 1 Tablet ORAL DAILY Qty = 14 Comments: Last Taken:12/24/17 Time:47 Other Inst/Recommendations Stay away from alcohol. Please see PCP about elevated liver fn tests. Studies Pending at Discharge None. Copies To: Ladarius AVALOS,Yvonne
== END 2017-12-24 11:27 | DRG 753 ==
LOC: ERH 11:13 → CP SOUTH 19:48 → ERHI 19:48 → CP SOUTH 21:54
PROVIDERS: Emergency Medicine; Student in an Organized Health Care Education/Training Program
DX: F31.9 Bipolar disorder, unspecified (principal); E03.9 Hypothyroidism, unspecified; E78.5 Hyperlipidemia, unspecified
CPT/HCPCS: 36415; 80307; 93005; 93010; G0480; J0515; J1630; J3101; J3490